=== PATIENT | male | born 1990 | race Caucasian/White ===

== ENCOUNTER 2025-07-19 21:21 | Emergency (ER) | payer SELFPAY ==
[~2025-07-19] VITALS: Ht 167.6 cm; Wt 95.3 kg
[2025-07-19 21:49] VITALS: BP 118/82
[2025-07-19] MEDS ORDERED: SODIUM BICARBONATE 4.2 % (NEUT) 5 ML VIAL ONE (22:19)
[2025-07-19] MEDS ORDERED: ACETAMINOPHEN 500 MG TABLET ONE (22:33)
[2025-07-19] MEDS: ACETAMINOPHEN 500 MG TABLET PO ONE (22:35)
[2025-07-19] MEDS: LIDOCAINE HCL 2% 20 ML VIAL IJ ONE (22:48)
[2025-07-19] MEDS: SODIUM BICARBONATE 4.2 % (NEUT) 5 ML VIAL IJ ONE (22:48)
[2025-07-19 23:32] VITALS: BP 118/82; O2SAT 96
== END 2025-07-19 23:32 | disposition home or self-care (01) ==
LOC: ER 21:21
DX: S63.296A Dislocation of distal interphalangeal joint of right little finger, initial encounter (principal); K51.90 Ulcerative colitis, unspecified, without complications; F32.A Depression, unspecified; W21.05XA Struck by basketball, initial encounter; Y93.9 Activity, unspecified; Y92.89 Other specified places as the place of occurrence of the external cause; Y99.9 Unspecified external cause status
CPT/HCPCS: 99284; 26770; 73140; J3490; A4606; A4663; A9150